=== PATIENT | female | born 1955 | race Caucasian/White ===

== ENCOUNTER 2019-05-14 11:17 | Emergency (ER) | payer OTHER, SELFPAY ==
[2019-05-14 11:23] VITALS: BP 131/74; PULSE 87; RESP 16; TEMP 36.7; O2SAT 99
--- NOTE | 2019-05-14 11:36 | W.ED.GENAD ---
Discharge Plan Disposition Patient Disposition: HOME Condition: Stable Discharge Details Chief Complaint: GenMedical Clinical Impression: Rash Primary Care Provider: Unknown,Unknown ED Provider: Quita Kitchen Discharge Instructions Instructions: Acute Rash (ED) Additional Instructions: Please return immediately to the emergency department if you develop any new or worsening symptoms or if you become otherwise concerned. It is extremely important that you attend your scheduled appointment tomorrow with dermatology, and also that you call as soon as possible to make an appointment to be seen in follow-up for this visit by your primary care doctor. Discharge Data Discharge Date/Time-TO BE ENTERED AT DEPARTURE: 05/14/19 13:22 Medical Decision Making Bethany Wlison is a 63-year-old woman with a history of hypertension taking amlodipine and no other medications, current everyday smoker, drinks 5 alcoholic drinks per day who presented to the emergency department with new itchy rash to her hands, face, and legs that began approximately 4 days ago. Otherwise asymptomatic. On exam patient is very well and nontoxic appearing. Benign cardiopulmonary exam. Palpable purpura to forehead, bilateral chin, left wrist, right fifth digit, right elbow, right medial thigh. No petechiae, no erythema, no other rash. No lower extremity edema. No intraoral lesion or bleeding. Concern for vasculitis, less likely dermatitis. Plan for screening labs. I did discuss the patient presentation with Dr. Callaway of rheumatology at [facility] who requested additional labs: RUDDY, C3, C4, rheumatoid factor, ANCA panel, non identifying photos of lesions sent to rheumatology. Rheumatology agrees lesions are potentially consistent with vasculitis, and they request that patient have urgent dermatology visit for biopsy so that steroids may then be initiated. Additional labs ordered but are send out and will not be resulted today. I contacted dermatology office at [facility], patient scheduled for biopsy at 3 PM tomorrow. Labs okay, UA shows pyuria, patient without any urinary symptoms. I have for the patient hydroxyzine for itching, but she states that itching is quite mild and manageable without medication. Had a lengthy discussion with the patient regarding return to emergency department precautions, importance of outpatient follow-up with dermatology tomorrow at 3 PM, and importance of outpatient follow-up with her primary care doctor as well. Patient verbalized understanding of the plan was amenable. All questions were answered. Patient was discharged home with clear plan for outpatient follow-up. Medical Records Medical records reviewed: Yes I reviewed the patient's medical records. Lab Data Lab results reviewed: Yes I reviewed the patient's lab results. Labs: Laboratory Tests Range/Units 05/14/19 05/14/19 05/14/19 12:25 12:25 12:25 WBC (4.4-10.8) k/cumm 6.30 RBC (4.00-5.20) m/cumm 4.39 Hgb (12.0-15.5) g/dL 14.9 Hct (36.0-46.0) % 43.5 MCV (80-95) fL 99.1 H MCH (27.0-33.0) pg 33.9 H MCHC (32.0-36.0) g/dL 34.3 RDW (11.7-14.6) % 13.5 Plt Count (130-400) x1000/uL 275 MPV (8.0-11.0) fL 9.4 Immature Gran % 0.2 Neutrophils % 68.5 Lymphocytes % 20.5 Monocytes % 9.2 Eosinophils % 1.3 Basophils % 0.3 Absolute Neutrophils (1.2-6.7) k/cumm 4.32 Absolute Lymphocytes (1.2-3.4) k/cumm 1.29 Absolute Monocytes (0.11-0.7) k/cumm 0.58 Absolute Eosinophils (0.0-0.7) k/cumm 0.08 Absolute Basophils (0.0-0.2) k/cumm 0.02 PT (9.3-11.0) sec 9.8 INR (0.9-1.1) 1.0 APTT (21.0-31.4) sec 22.7 Sodium (136-145) mmol/L 143 Potassium (3.5-5.1) mmol/L 4.0 Chloride (98-107) mmol/L 108 H Carbon Dioxide (21.0-32.0) mmol/L 26.6 Anion Gap (3-11) mmol/L 8.4 BUN (7-18) mg/dL 12 Creatinine (0.55-1.02) mg/dL 0.63 Estimated GFR/1.73 m2 (mL/min/1.73m2) >= 60.00 Glucose (70-100) mg/dL 95 Calcium (8.5-10.1) mg/dL 8.4 L Total Bilirubin (0.2-1.0) mg/dL 0.4 AST (15-37) U/L 20 ALT (14-59) U/L 21 Alkaline Phosphatase (46-116) U/L 62 C-Reactive Protein (0.0-0.3) mg/dL 0.59 H Total Protein (6.4-8.2) g/dL 6.8 Albumin (3.4-5.0) g/dL 3.5 Urine Color (Yellow) Urine Clarity (Clear) Urine pH (5-8) Ur Specific [place] (1.005-1.025) Urine Protein (Negative) mg/dL Urine Ketones (Negative) mg/dL Urine Blood (Negative) Urine Nitrite (Negative) Urine Bilirubin (Negative) Urine Urobilinogen (Up TO 0.2) EU/dL Ur Leukocyte Esterase (Negative) Urine RBC (0-2) Urine WBC (0-5) HPF Ur Epithelial Cells (Negative) HPF Urine Crystals (Negative) HPF Urine Bacteria (Negative) HPF Urine Casts (Negative) LPF Urine Mucus (Negative) Urine Other (Negative) Ur Culture Indicated? Urine Glucose (Negative) mg/dL Range/Units 05/14/19 12:30 WBC (4.4-10.8) k/cumm RBC (4.00-5.20) m/cumm Hgb (12.0-15.5) g/dL Hct (36.0-46.0) % MCV (80-95) fL MCH (27.0-33.0) pg MCHC (32.0-36.0) g/dL RDW (11.7-14.6) % Plt Count (130-400) x1000/uL MPV (8.0-11.0) fL Immature Gran % Neutrophils % Lymphocytes % Monocytes % Eosinophils % Basophils % Absolute Neutrophils (1.2-6.7) k/cumm Absolute Lymphocytes (1.2-3.4) k/cumm Absolute Monocytes (0.11-0.7) k/cumm Absolute Eosinophils (0.0-0.7) k/cumm Absolute Basophils (0.0-0.2) k/cumm PT (9.3-11.0) sec INR (0.9-1.1) APTT (21.0-31.4) sec Sodium (136-145) mmol/L Potassium (3.5-5.1) mmol/L Chloride (98-107) mmol/L Carbon Dioxide (21.0-32.0) mmol/L Anion Gap (3-11) mmol/L BUN (7-18) mg/dL Creatinine (0.55-1.02) mg/dL Estimated GFR/1.73 m2 (mL/min/1.73m2) Glucose (70-100) mg/dL Calcium (8.5-10.1) mg/dL Total Bilirubin (0.2-1.0) mg/dL AST (15-37) U/L ALT (14-59) U/L Alkaline Phosphatase (46-116) U/L C-Reactive Protein (0.0-0.3) mg/dL Total Protein (6.4-8.2) g/dL Albumin (3.4-5.0) g/dL Urine Color (Yellow) Yellow Urine Clarity (Clear) Sl cloudy Urine pH (5-8) 5.5 Ur Specific [place] (1.005-1.025) 1.025 Urine Protein (Negative) mg/dL Negative Urine Ketones (Negative) mg/dL Negative Urine Blood (Negative) Negative Urine Nitrite (Negative) Positive H Urine Bilirubin (Negative) Negative Urine Urobilinogen (Up TO 0.2) EU/dL 0.2 Ur Leukocyte Esterase (Negative) Moderate H Urine RBC (0-2) Negative Urine WBC (0-5) HPF 20-50 Ur Epithelial Cells (Negative) HPF Negative Urine Crystals (Negative) HPF Negative Urine Bacteria (Negative) HPF Moderate Urine Casts (Negative) LPF Negative Urine Mucus (Negative) Trace Urine Other (Negative) Ur Culture Indicated? No/sq. contamination Urine Glucose (Negative) mg/dL Negative HPI General Mode of arrival: ambulatory. Date/Time Provider Initiated Documentation: 05/14/19 11:35. Limitations to Documentation: no limitations. Information obtained by: patient, RN notes reviewed and old records reviewed. HPI Narrative: Bethany Wilson is a 63-year-old woman with history of hypertension presenting to the emergency department with itchy rash. Patient states that 4 days ago she arrived in [place] from [place], and noticed itching on her hands and face prior to spending the night in her hotel. Pt thought she was being bitten by insects, bur no insects seen. Patient reports that her is traveling with her and staying the same bed at her hotel, and he has had no symptoms. Patient reports that she feels otherwise in her usual state of health without other symptoms. No fever, no pain, no vomiting, no diarrhea, no shortness of breath, no cough, no numbness, no weakness, no color change to her skin other than her rash, no feeling that her hands or feet are colder than usual, no bleeding from her gums, no hematuria, no urinary symptoms. Patient states she has never had similar symptoms in the past. No recent illness. Has been eating and drinking as usual. Patient states that she has 5 mixed drinks per day. General Stated Complaint: GenMedical SHIRLEY: 4 Review of Systems Review of Systems Narrative: Constitutional: denies fevers Eyes: denies eye pain ENT: denies facial pain, dental pain, sore throat, bleeding gums, nosebleeds Cardiovascular: denies chest pain, edema Respiratory: denies SOB, cough GI: denies abdominal pain, vomiting, diarrhea : denies flank pain, dysuria, urinary frequency, hematuria MSK: denies back pain, neck pain, arthralgias, myalgias Skin: Reports rash as above Neuro: denies headaches, numbness, weakness [facility] Social History Smoking/Tobacco Use Status: Never Alcohol Intake: current Alcohol Intake frequency: holidays/special occasions only Substance use type: does not use Do you feel safe at home: Yes Do you feel safe in your relationship?: Yes Exam Narrative Exam Narrative: Constitutional: well and [id number], pleasant, conversing normally HENT: head atraumatic/normocephalic/normal inspection, mucous membranes moist, no intraoral lesion Eyes: conjunctiva normal, sclera normal, pupils 3mm b/l Neck: no stridor, normal ROM, trachea midline Chest: normal inspection Resp: normal work of breathing, LCTAB Cardio: normal rate, normal rhythm, no murmur appreciated Back: normal inspection, no rash Skin: warm, dry, normal color, palpable purpura to forehead, bilateral chin, left wrist, right fifth digit, right elbow, right medial thigh. No petechiae, no erythema, no other rash. Neuro: alert, not altered, grossly non-focal, normal tone Ext: no edema Psych: normal mood, normal affect, normal behavior Course Vital Signs Vital signs: Vital Signs Temperature 36.7 C 05/14/19 11:23 Pulse 87 05/14/19 11:23 Respiratory Rate 16 05/14/19 11:23 Blood Pressure 131/74 05/14/19 11:23 Pulse Oximetry 99 05/14/19 11:23 Temperature 36.7 C 05/14/19 11:23 Pulse 87 05/14/19 11:23 Respiratory Rate 16 05/14/19 11:23 Blood Pressure 131/74 05/14/19 11:23 Pulse Oximetry 99 05/14/19 11:23 Oxygen Delivery Method Room Air 05/14/19 11:23 Oxygen Flow Rate 0 05/14/19 11:23
[2019-05-14 12:20] VITALS: RESP 16
[2019-05-14 12:38] LABS: Abs Immature Grans 0.01 k/cumm (0.0-0.09); Absolute Basophil Count 0.02 k/cumm (0.0-0.2); Absolute Eosinophil Count 0.08 k/cumm (0.0-0.7); Absolute Lymphocyte Count 1.29 k/cumm (1.2-3.4); Absolute Monocyte Count 0.58 k/cumm (0.11-0.7); Absolute Neutrophil Count 4.32 k/cumm (1.2-6.7); Basophils % 0.3; Eosinophils % 1.3; HCT 43.5 % (36.0-46.0); HGB 14.9 g/dL (12.0-15.5); Immature Grans % 0.2; Lymphocytes % 20.5; Mean Corp. HGB Concentration 34.3 g/dL (32.0-36.0); Mean Corpuscular Hemoglobin 33.9 pg (27.0-33.0); Mean Corpuscular Volume 99.1 fL (80-95); Mean Platelet Volume 9.4 fL (8.0-11.0); Monocytes % 9.2; Neutrophils % 68.5; Platelet Count 275 x1000/uL (130-400); RBC 4.39 m/cumm (4.00-5.20); RBC Distribution Width 13.5 % (11.7-14.6)
[2019-05-14 12:41] LABS: Bilirubin Negative (Negative); Blood Negative (Negative); Clarity Sl Cloudy (Clear); Glucose Negative (Negative); Ketones Negative (Negative); Leukocyte Esterase Moderate (Negative); Nitrite Positive (Negative); Specific Gravity 1.025 (1.005-1.025); Urobilinogen 0.2 EU/dL (Up TO 0.2); pH 5.5 (5-8)
[2019-05-14 12:46] LABS: PTT Activated 22.7 sec (21.0-31.4); Prothrombin Time 9.8 sec (9.3-11.0)
[2019-05-14 12:56] LABS: ALT 21 U/L (14-59); AST 20 U/L (15-37); Albumin 3.5 g/dL (3.4-5.0); Alkaline Phosphatase 62 U/L (46-116); Anion Gap 8.4 mmol/L (3-11); BUN 12 mg/dL (7-18); Bilirubin, Total 0.4 mg/dL (0.2-1.0); C-Reactive Protein 0.59 mg/dL (0.0-0.3); CO2 26.6 mmol/L (21.0-32.0); CREATININE 0.63 mg/dL (0.55-1.02); Calcium 8.4 mg/dL (8.5-10.1); Chloride 108 mmol/L (98-107); Glucose 95 mg/dL (70-100); Sodium 143 mmol/L (136-145); Total Protein 6.8 g/dL (6.4-8.2)
[2019-05-14 12:57] LABS: RBC Negative (0-2); WBC 20-50 HPF (0-5)
[2019-05-14 12:58] LABS: Bacteria Moderate HPF (Negative); C & S Indicated? No/Sq. Contamination; Casts Negative LPF (Negative); Crystals Negative HPF (Negative); Mucus Trace (Negative)
--- NOTE | 2019-05-14 13:27 | NUR.NOTE ---
Nursing Note: Faxed to [facility] the labs and MD note. She has an appt. tomorrow for follow up from ED. Felicia Arenas. .
[2019-05-14 13:40] LABS: Epithelial Cells Moderate HPF (Negative)
[2019-05-14 13:50] LABS: ESR 4 mm/hr (0-30)
[2019-05-15 09:53] LABS: C3 Complement 95 mg/dL (81-157); C4 Complement 22 mg/dL (13-39); Rheumatoid Factor 9 IU/mL (<12.5)
[2019-05-15 14:41] LABS: ANA Interpretation Positive (NEGAT); ANA Titer Pattern SEE COMMENTS
[2019-05-15 17:23] LABS: Myeloperoxidase Ab IgG <0.2 U; Proteinase 3 Ab (PR3) <0.2 U
== END 2019-05-14 13:22 | disposition home or self-care (01) ==
LOC: ER 13:18
PROVIDERS: Emergency Provider Student in an Organized Health Care Education/Training Program; PCP Family Medicine
DX: R21 Rash and other nonspecific skin eruption (principal); I10 Essential (primary) hypertension
CPT/HCPCS: 36415; 80053; 85652; 99283; 81003; 81015; 83516; 85025; 85610; 85730; 86038; 86140; 86160; 86431; 99282